=== PATIENT | female | born 1970 | race Caucasian/White ===

== ENCOUNTER 2017-06-02 19:49 | Emergency (ER) | payer MEDICAID, SELFPAY ==
[2017-06-02 19:50] VITALS: BP 148/99; PULSE 76; RESP 15; TEMP 36.9; BMI 30.3
--- NOTE | 2017-06-02 20:05 | ED.VISSUMM ---
- ER Visit Summary Date of Service: 06/02/17 Chief Complaint: [] Right knee pain History of Present Illness: The patient is a 46 F [] complaining of right knee pain beginning today. She reports walking down the steps and feeling a pop. Denies any acute injury. Reports difficulty with ambulation. No other complaints at this time. Physical Examination: [] Afebrile, vital signs stable. Termination of the right knee reveals tenderness to range of motion testing. No gross deformity or swelling. Anterior/posterior drawer sign. Mild discomfort with valgus stress. Test Results: [] Right knee 4 view x-rays: Emergency Department Course and Treatment: [] X-rays were negative. Patient was provided Eddi wrap. Patient provided with written for Naprosyn. Treatment Plan: [] Follow-up with PCP. Disposition: [] Discharge, stable. Impression: [] Right knee sprain This note was generated with [employer] dictation software. It may contain incorrect words, spelling, and punctuation that were not noted in review of the chart prior to signing ED Disposition - Plan for ED Patient: Chief Complaint: Lower Extremity Injury
--- NOTE | 2017-06-02 20:06 | RAD_ITS ---
STUDY: X-RAY - RIGHT KNEE REASON FOR EXAM: Female, 46 years old. Pain. Status post injury. TECHNIQUE: For view(s) of the knee. COMPARISON: None. FINDINGS: Normal visualized distal femur. Normal visualized proximal tibia and fibula. Normal proximal tibiofibular articulation. Normal medial femorotibial compartment. Normal lateral femorotibial compartment. There is mild degenerative arthrosis of the patellofemoral articulation. The soft tissue structures are unremarkable. RAD/Knee 4 or More Views IMPRESSION: No acute osseous injury. Electronically Signed: Marianna Gaming MD at 20:57 EST Tel , Service support ,
--- NOTE | 2017-06-02 20:59 | ED.DEP ---
ED Disposition - Plan for ED Patient: Disposition: Home or Assisted Living Chief Complaint: Lower Extremity Injury Instructions: ED Knee Pain [facility] Prescriptions: Naproxen 500 mg PO BID PRN PRN #20 tab PRN Reason: Pain Referrals: Care Physician,No Primary [Primary Care Provider] -
[2017-06-02 21:20] VITALS: RESP 18
--- NOTE | 2017-06-02 21:20 | ED.RN ---
REVIEWED D/C INSTRUCTIONS, FOLLOW UP CARE, PRESCRIPTION, AND S/S THAT WOULD WARRANT A RETURN TO THE ED WITH PT. PT VERBALIZED AN UNDERSTANDING AND DENIES FURTHER QUESTIONS FOR THIS RN. PT SKIN P/W/D, RESP EVEN AND UNLABORED, PT A&O X 3, NO DISTRESS NOTED. PT AMBULATED OUT OF ED, GAIT STEADY.
== END 2017-06-02 21:20 | disposition home or self-care (01) ==
PROVIDERS: Emergency Provider Emergency Medicine; Family Provider Family Medicine; PCP Family Medicine
DX: S83.91XA Sprain of unspecified site of right knee, initial encounter (principal); X58.XXXA Exposure to other specified factors, initial encounter; Y93.01 Activity, walking, marching and hiking; Y92.9 Unspecified place or not applicable; I25.10 Atherosclerotic heart disease of native coronary artery without angina pectoris; Z86.79 Personal history of other diseases of the circulatory system; Z86.59 Personal history of other mental and behavioral disorders; Z72.0 Tobacco use
CPT/HCPCS: 73564; 99282

== ENCOUNTER 2017-08-30 18:21 | Emergency (ER) | payer MEDICAID, SELFPAY ==
[2017-08-30 18:22] VITALS: BP 164/91; PULSE 76; RESP 22; TEMP 36.9; O2SAT 100; BMI 30.6
--- NOTE | 2017-08-30 18:35 | RAD_ITS ---
STUDY: X-RAY CHEST REASON FOR EXAM: Female, 47 years old. Chest pain TECHNIQUE: Frontal view of the chest COMPARISON: None. FINDINGS: The lungs are clear. There are no pleural effusions. There is no pneumothorax. The heart is normal in size. The visualized osseous structures are within normal limits. RAD/Chest 1 View (Portable) IMPRESSION: No acute thoracic pathology. Electronically Signed: Marino Joshua, at 19:01 EDT Tel , Service support ,
--- NOTE | 2017-08-30 18:35 | EKG12_ITS ---
Test Reason : CP Blood Pressure : / mmHG Vent. Rate : 069 BPM Atrial Rate : 069 BPM P-R Int : 132 ms QRS Dur : 082 ms QT Int : 408 ms P-R-T Axes : 043 -10 065 degrees QTc Int : 437 ms Normal sinus rhythm Inferior infarct , age undetermined Abnormal ECG Confirmed by RANDY ALMARAZ ([id number]), editor in chief VERNA LOYA ([id number]) on 09/10/2017 6:24:18 PM Referred By: LEILANI Confirmed By:RANDY ALMARAZ
[2017-08-30 18:39] VITALS: O2SAT 100
--- NOTE | 2017-08-30 18:40 | ED.RN ---
NO OLD EKG'S IN MUSE
[2017-08-30] MEDS: fentaNYL 100 MCG/2 ML Ampul 50 MCG IV (18:45)
[2017-08-30] MEDS: Aspirin 81 MG TAB.CHEW 324 MG PO (18:45)
[2017-08-30] MEDS: 0.9% Normal Saline 1,000 ML 150 ML IV (18:45)
[2017-08-30 18:47] LABS: Absolute Lymphocyte Count 2.85 X10^3/ul (0.83-4.51); Absolute Neutrophil Count 3.5 X10^3/uL (2.0-7.7); Basophil# 0.04 X10^3/uL; Basophil% 0.6 % (0-1); Eosinophil# 0.22 X10^3/uL; Eosinophils% 3.2 % (0-5); Hematocrit 39.1 % (37-47); Hemoglobin 12.6 g/dl (12.0-15.0); Lymphocyte # 2.85 X10^3/ul (4.0); Lymphocyte % 40.8 % (19-41); Mean Corp Hgb Conc 32.2 g/gl (32-36); Mean Corpuscular Hgb 29.4 pg (27.0-32.0); Mean Corpuscular Volume 91.1 fL (81-99); Monocyte# 0.39 X10^3/uL; Monocyte% 5.6 % (0-10); Neutrophil # 3.47 X10^3/uL (2.7-7.7); Neutrophil % 49.7 % (47-70); Platelet Count 295 K/mm3 (150-450); RBC Distribution Width CV 16.6 % (11.6-14.6); RBC Distribution Width SD 55.5 fl (35.1-43.9); Red Blood Count 4.29 M/mm3 (4.2-5.4)
[2017-08-30 18:48] LABS: POSITIVE COUNT NO; POSITIVE DIFFERENTIAL NO; POSITIVE MORPHOLOGY NO
[2017-08-30 19:00] LABS: D-Dimer Quantitative (DVT/PE) 0.33 FEU/ug/m (0.27-0.49)
[2017-08-30 19:08] LABS: Anion Gap 8 (5-15); BUN 21 mg/dL (7-18); BUN/Creat Ratio 22.8 RATIO (10-20); Calcium,Total 8.6 mg/dL (8.5-10.1); Chloride 107 mmol/L (98-107); Creatinine, Serum 0.92 mg/dL (0.55-1.02); EST Glomerular Filtration Rate 69 mL/min (>60); Est Glom Filt Rate - Afr Amer 84 mL/min (>60); Estimated Creatinine Clearance 68.02 ml/min; Glucose 90 mg/dL (74-106); Potassium 3.7 mmol/L (3.5-5.1); Sodium Level 140 mmol/L (136-145)
--- NOTE | 2017-08-30 20:29 | ED.VISSUMM ---
- ER Visit Summary Date of Service: 08/30/17 Chief Complaint: [Chest pain] History of Present Illness: The patient is a 47 F [presents to the emergency department complaint of chest pain that started about an hour ago. Patient describes a sharp stabbing pain in the left chest that she rates a 9 out of 10. Patient states she took a nitro at work without any relief. Patient took a second and a third nitro and when she did not get relief she called the EMS. Patient states that her neck got stiff and she had some numbness and tingling in her right arm. Patient states this felt similar to last time she had a heart attack. Patient states that about 6 months ago she was seen in [facility] for chest pain and was life flighted to another facility where she had a heart catheterization that just showed minimal disease and did not require any stenting. Patient was told that she likely had coronary artery spasm. Patient also states recently had her anxiety medicine increased and she does have a history of panic attacks. DAMON MCINTOSHMI. Cranial nerves II through XII grossly intact. Extremities-intact ?4, normal range of motion, normal pulses, atraumatic] Physical Examination: HEFROYLAN-PERRLA, EOMI. Cranial nerves II through XII grossly intact. TMs clear. Mucous membranes moist. No adenopathy. Cardiovascular-regular rate and rhythm without murmur or ectopy Lungs-clear to auscultation, chest wall stable without crepitus or subcu emphysema Abdomen-normoactive bowel sounds, soft, nontender, no rebound or rigidity, no peritoneal signs. Extremities-intact ?4, normal range of motion, normal pulses, atraumatic] Test Results: [EKG obtained on arrival shows sinus rhythm with a ventricular rate of 63 bpm with old inferior wall infarct. CBC with differential obtained showed a white count 7.0, hemoglobin 12.6, hematocrit 39, platelets 295. Chemistries unremarkable. Troponin was less than 0.015. D-dimer was normal at 0.33. Chest x-ray was normal.] Emergency Department Course and Treatment: [Patient received fentanyl 50 mcg IV and had good pain relief with that.] Treatment Plan: [I recommended admission for further workup and evaluation of her chest pain especially given her history of coronary artery spasm and GA. Patient is refusing admission at this point and will sign out AGAINST MEDICAL ADVICE. Patient understands I cannot rule out an acute coronary syndrome and she risks , disability, heart attack. Disposition: Signed out AGAINST MEDICAL ADVICE] Impression: [Chest pain-etiology uncertain] This note was generated with [employer] dictation software. It may contain incorrect words, spelling, and punctuation that were not noted in review of the chart prior to signing ED Disposition - Plan for ED Patient: Chief Complaint: Chest Pain Referrals: Radha Daigle MD [Primary Care Provider] -
--- NOTE | 2017-08-30 20:35 | ED.DCSUM_ITS ---
- ER Visit Summary Date of Service: 08/30/17 Chief Complaint: [Chest pain] History of Present Illness: The patient is a 47 F [presents to the emergency department complaint of chest pain that started about an hour ago. Patient describes a sharp stabbing pain in the left chest that she rates a 9 out of 10. Patient states she took a nitro at work without any relief. Patient took a second and a third nitro and when she did not get relief she called the EMS. Patient states that her neck got stiff and she had some numbness and tingling in her right arm. Patient states this felt similar to last time she had a heart attack. Patient states that about 6 months ago she was seen in [facility] for chest pain and was life flighted to another facility where she had a heart catheterization that just showed minimal disease and did not require any stenting. Patient was told that she likely had coronary artery spasm. Patient also states recently had her anxiety medicine increased and she does have a history of panic attacks. DAMON MCINTOSHMI. Cranial nerves II through XII grossly intact. Extremities-intact ?4, normal range of motion, normal pulses, atraumatic] Physical Examination: HEFROYLAN-PERRLA, EOMI. Cranial nerves II through XII grossly intact. TMs clear. Mucous membranes moist. No adenopathy. Cardiovascular-regular rate and rhythm without murmur or ectopy Lungs-clear to auscultation, chest wall stable without crepitus or subcu emphysema Abdomen-normoactive bowel sounds, soft, nontender, no rebound or rigidity, no peritoneal signs. Extremities-intact ?4, normal range of motion, normal pulses, atraumatic] Test Results: [EKG obtained on arrival shows sinus rhythm with a ventricular rate of 63 bpm with old inferior wall infarct. CBC with differential obtained showed a white count 7.0, hemoglobin 12.6, hematocrit 39, platelets 295. Chemistries unremarkable. Troponin was less than 0.015. D-dimer was normal at 0.33. Chest x-ray was normal.] Emergency Department Course and Treatment: [Patient received fentanyl 50 mcg IV and had good pain relief with that.] Treatment Plan: [I recommended admission for further workup and evaluation of her chest pain especially given her history of coronary artery spasm and ND. Patient is refusing admission at this point and will sign out AGAINST MEDICAL ADVICE. Patient understands I cannot rule out an acute coronary syndrome and she risks , disability, heart attack. Disposition: Signed out AGAINST MEDICAL ADVICE] Impression: [Chest pain-etiology uncertain] This note was generated with [employer] dictation software. It may contain incorrect words, spelling, and punctuation that were not noted in review of the chart prior to signing ED Disposition - Plan for ED Patient: Chief Complaint: Chest Pain Referrals: Radha Daigle MD [Primary Care Provider] -
--- NOTE | 2017-08-30 20:35 | ED.DEP ---
ED Disposition - Plan for ED Patient: Chief Complaint: Chest Pain Instructions: ED Chest Pain Atypical Unkn Cause Referrals: Radha Daigle MD [Primary Care Provider] - Pavel Boland MD [STAFF PHYSICIAN] - 3-5 Days
[2017-08-30 20:39] VITALS: BP 129/77; PULSE 63; RESP 13; O2SAT 100
== END 2017-08-30 20:52 | disposition home or self-care (01) ==
LOC: ED 18:55
PROVIDERS: Emergency Provider Emergency Medicine; Family Provider Family Medicine; PCP Family Medicine
DX: R07.9 Chest pain, unspecified (principal); I25.2 Old myocardial infarction; I10 Essential (primary) hypertension; F41.0 Panic disorder [episodic paroxysmal anxiety]; F41.9 Anxiety disorder, unspecified; Z72.0 Tobacco use; Z79.899 Other long term (current) drug therapy
CPT/HCPCS: 71045; 80048; 84484; 85025; 85379; 93005; 99285; J7030; A4216

== ENCOUNTER 2022-09-22 18:48 | Emergency (ER) | payer MEDICAID, SELFPAY ==
[2022-09-22 18:49] VITALS: BP 141/81; PULSE 82; RESP 16; TEMP 36.4; O2SAT 100; BMI 39.4
--- NOTE | 2022-09-22 19:02 | CT_ITS ---
STUDY: CT BRAIN WITHOUT CONTRAST REASON FOR EXAM: Female, 52 years old. dizzy RADIATION DOSAGE (If Supplied By Facility): CTDIvol = ( 44.99 ) mGy, DLP = ( 829.85 ) mGycm TECHNIQUE: Transaxial CT imaging of the brain was performed without administration of intravenous contrast material. Individualized dose optimization techniques were used for this CT. COMPARISON: No relevant priors. FINDINGS: Normal soft tissue structures. Normal calvarium. Normal size ventricles and extra-axial spaces for the patient''s age. Normal white matter tracts of the cerebral hemispheres. Normal basal ganglia and thalami. Normal brainstem. Normal cerebellum. There is no intracranial hemorrhage. There are no findings of an acute ischemic infarction. Normal visualized paranasal sinuses. CT/Brain/Head without Contrast IMPRESSION: Normal unenhanced CT scan of the brain. If clinical suspicion for acute infarct MRI recommended Electronically Signed: Bobby Hoffman MD at 19:36 EDT ,
--- NOTE | 2022-09-22 19:09 | EX.ED.DYSGE1 ---
HPI History of Present Illness Chief Complaint: Dizziness Detail of Chief Complaint: Near syncope Informant: patient Onset/Context/Timing Onset: Yesterday Narrative Narrative: Patient states that since yesterday she will get lightheaded and dizzy when she stands or walks and feels that she is going to pass out. She states she will start to see a black tunnel and this will resolve if she sits down to rest. She denies any new medications to me. She has been eating and drinking well. She reports normal urination. She denies chest pain or palpitations. [facility] Medical History CVA (cerebral vascular accident) Heart attack Hypertension Home Medications citalopram 20 mg tablet 40 mg PO DAILY 08/30/17 [History Last Taken Unknown] diltiazem HCl 240 mg capsule,extended release 24 hr (Cartia XT) 240 mg PO DAILY 08/30/17 [History Last Taken Unknown] isosorbide dinitrate 30 mg tablet 30 mg PO BID 08/30/17 [History Last Taken Unknown] nitroglycerin 0.4 mg sublingual tablet 0.4 mg sublingual UD PRN Pain 08/30/17 [History Last Taken Unknown] propranolol 10 mg tablet 20 mg PO TID 08/30/17 [History Last Taken Unknown] quetiapine 300 mg tablet (Seroquel) 300 mg PO QHS 08/30/17 [History Last Taken Unknown] carvedilol 6.25 mg tablet 6.25 mg PO BID 09/22/22 [History Last Taken Unknown] clopidogrel 75 mg tablet 75 mg PO DAILY 09/22/22 [History Last Taken Unknown] isosorbide mononitrate 120 mg tablet,extended release 24 hr 120 mg PO DAILY 09/22/22 [History Last Taken Unknown] Allergy/AdvReac Type Severity Reaction Status Date / Time bee venom protein (honey bee) Allergy Anaphylaxis Verified 09/22/22 18:52 [bees] Penicillins Allergy Unknown Verified 09/22/22 18:52 mirtazapine [From Remeron] AdvReac Upset Verified 09/22/22 18:52 Stomach Social History Smoking Status: Current every day smoker tobacco type: cigarettes ROS ROS ED Constitutional Constitutional ED: Denies chills or fever(s) Eyes Eyes: Denies change in vision or discharge from eye(s) ENT ENT ED: Denies discharge from eye(s), rhinorrhea or sore throat Cardiovascular Cardiovascular: Denies chest pain or palpitations Respiratory/Chest Respiratory/Chest: Denies cough or dyspnea Gastrointestinal Gastrointestinal: Denies abdominal pain, nausea or vomiting Genitourinary Genitourinary ED: Denies difficulty urinating or dysuria Musculoskeletal Musculoskeletal: Denies back pain or extremity pain Integumentary Denies Abrasions or rash Neurologic Neurologic: Denies headache(s) or weakness Psychiatric Psychiatric: Denies anxiety or depression Allergic/Immunologic Allergic/Immunologic ED: Denies lip swelling or urticaria EXAM Physical Exam Const Vital Signs: 09/22/22 18:49 09/22/22 20:17 09/22/22 20:30 Temperature 97.5 F L Temperature Source Temporal Pulse Rate 82 71 Pulse Rate [Lying] 76 Pulse Rate [Sitting (for 1 minute prior to obtaining)] 75 Pulse Rate [Standing (for 1 minute prior to obtaining)] 80 Respiratory Rate 16 22 H Blood Pressure 141/81 H 129/75 H Blood Pressure [Lying] 128/69 H Blood Pressure [Sitting (for 1 minute prior to obtaining)] 141/84 H Blood Pressure [Standing (for 1 minute prior to obtaining)] 135/83 H Blood Pressure Mean 101 90 Blood Pressure Mean [Lying] 88 Blood Pressure Mean [Sitting (for 1 minute prior to obtaining)] 103 Blood Pressure Mean [Standing (for 1 minute prior to obtaining)] 100 Pulse Ox 100 Oxygen Delivery Method Room Air 09/22/22 20:45 09/22/22 21:00 09/22/22 21:15 Temperature Temperature Source Pulse Rate 72 70 72 Pulse Rate [Lying] Pulse Rate [Sitting (for 1 minute prior to obtaining)] Pulse Rate [Standing (for 1 minute prior to obtaining)] Respiratory Rate 20 H 20 H 17 Blood Pressure 112/59 L 125/70 H 125/68 H Blood Pressure [Lying] Blood Pressure [Sitting (for 1 minute prior to obtaining)] Blood Pressure [Standing (for 1 minute prior to obtaining)] Blood Pressure Mean 75 85 85 Blood Pressure Mean [Lying] Blood Pressure Mean [Sitting (for 1 minute prior to obtaining)] Blood Pressure Mean [Standing (for 1 minute prior to obtaining)] Pulse Ox Oxygen Delivery Method Positive well nourished and well developed General Appearance ED: well developed HEENT Reports normocephalic and head/scalp atraumatic Eyes PERRL and EOMs intact bilaterally Neck supple Chest Wall inspection of chest normal and palpation of chest normal Resp normal respiratory effort and clear to auscultation bilaterally Cardio regular rate and regular rhythm GI normal to inspection, nondistended, normoactive bowel sounds Palpation: soft Extremity normal to inspection Neuro oriented x3 and no sensory deficits noted Sensorium / Orientation: alert Motor Exam: strength 5/5 throughout Psych mental status grossly normal Skin no rashes or lesions noted MDM MDM MDM Narrative Medical decision making narrative: Patient placed on global transportation manager. EKG obtained to evaluate for cardiac arrhythmia/ischemia. Chest x-ray obtained to evaluate for acute lung pathology, cardiac size, or mediastinal abnormality. Labwork obtained to evaluate for leukocytosis, anemia, and electrolyte derangement. CT scan of the head obtained given lightheadedness and near syncope. Lab Data Attestation: I reviewed the patient's lab results. Labs: Laboratory Results - last 24 hr 09/22/22 09/22/22 09/22/22 19:16 19:16 20:30 WBC 6.2 RBC 3.50 L Hgb 11.2 L Hct 34.6 L MCV 98.9 MCH 32.0 MCHC 32.4 RDW Std Deviation 46.5 H RDW Coeff of Kriss 13.0 Plt Count 267 MPV 8.9 Immature Gran % (Auto) 0.200 Neut % (Auto) 66.7 Lymph % (Auto) 22.6 Addison % (Auto) 6.6 Eos % (Auto) 3.4 Baso % (Auto) 0.5 Absolute Neuts (auto) 4.2 Absolute Lymphs (auto) 1.41 Nucleated RBC % 0 Sodium 140 Potassium 3.9 Chloride 111 H Carbon Dioxide 22.0 Anion Gap 7 BUN 19 H Creatinine 1.19 H Estim Creat Clear Calc 49.76 Est GFR (MDRD) Af Amer 61 Est GFR (MDRD) Non-Af 51 L BUN/Creatinine Ratio 16.0 Glucose 140 H Calcium 8.9 Total Bilirubin 0.50 Direct Bilirubin 0.14 AST 15 ALT 20 Alkaline Phosphatase 82 Troponin I High Sens 14 Total Protein 7.0 Albumin 3.6 Globulin 3.4 Urine Color Yellow Urine Clarity Cloudy Urine pH 6.0 Ur Specific Monument 1.015 Urine Protein 15 H Urine Glucose (UA) Normal Urine Ketones Negative Urine Occult Blood 10 H Urine Nitrite Negative Urine Bilirubin Negative Urine Urobilinogen Normal Ur Leukocyte Esterase 100 H Urine RBC 0-5 SEEN Urine WBC 10-25 SEEN Ur Squamous Epith Cells 10-25 SEEN Urine Bacteria 1+ Urine Mucus 0 SEEN Radiography Chest X-Ray - ED: 1 View, Read by ED Physician, Normal, Heart, Lungs and Mediastinum Diagnostic Testing: Clinical Impression(s) from Imaging Studies Brain CT 09/22/22 19:02 IMPRESSION: Normal unenhanced CT scan of the brain. If clinical suspicion for acute infarct MRI recommended Electronically Signed: Bobby Hoffman MD at 19:36 EDT , Chest X-Ray 09/22/22 19:23 IMPRESSION: Normal x-ray examination of the chest. Electronically Signed: Bobby Hoffman MD at 19:41 EDT , EKG Initial EKG: Attestation: I personally reviewed and interpreted this EKG as follows: Interpretation: Sinus Rhythm (Sinus at 76 with inferior Q waves. No acute ST change.) Treatment and Re-Evaluation :: CBC was normal white count at 6.2 with a hemoglobin of 11.2. Chemistry studies significant for BUN of 19 and a creatinine 1.19. This is slightly improved over her prior, however her previous labs were from 2018. Blood glucose is 140 and patient had just come from dinner. Chemistry studies are unremarkable. Troponin is normal at 14. Portable chest x-ray per my interpretation reveals no acute findings. Radiology interpretation reviewed and agrees. Head CT is normal. Patient was given a liter of IV fluids here. After IV fluids are administered orthostatic vital signs are obtained and normal. I did review patient's recent prescriptions. She was given a prescription for Robaxin on September 09. She states she took this for a day or 2 but has not taken it recently. She was also given a prescription for Coreg 6.25 mg twice daily. She states she took 1 tab of this yesterday for the first time. She initially thought this was causing her symptoms and has not taken any more of the medication. She is on baseline propranolol that has been longstanding with no recent changes to that dose. She is also on isosorbide. She had previously been on 30 mg 3 times daily, but that was switched to 120 mg extended release about 2 weeks ago. She states that she had been tolerating this well for the first week and a half that she took it and is not sure that this is causing her symptoms. Urinalysis is obtained and reveals no evidence of acute infection. Test results are all discussed with the patient. She will be given a work note for today and tomorrow. She will call her doctor on Sunday. Return instructions were provided and patient is comfortable with the plan. Discharge Plan Triage Chief Complaint: Dizziness ED Provider: Desiree Snowden Dx/Rx/DC Orders Clinical Impression: Near syncope Instructions: ED Near-Fainting, Uncertain Cause Prescriptions: No Action quetiapine [Seroquel] 300 MG tablet 300 mg PO QHS diltiazem HCl [Cartia XT] 240 MG capsule,extended release 24hr 240 mg PO DAILY Label Comments: take 1 capsule by mouth every morning isosorbide dinitrate 30 MG tablet 30 mg PO BID Label Comments: propranolol 10 MG tablet 20 mg PO TID citalopram 20 MG tablet 40 mg PO DAILY Label Comments: take 1 tablet by mouth once daily nitroglycerin 0.4 MG tablet, sublingual 0.4 mg sublingual UD PRN (Reason: Pain) Label Comments: clopidogrel 75 mg tablet 75 mg PO DAILY Label Comments: take 1 tablet by mouth once daily carvedilol 6.25 mg tablet 6.25 mg PO BID Label Comments: take 1 tablet by mouth twice a day isosorbide mononitrate 120 mg tablet extended release 24 hr 120 mg PO DAILY Label Comments: take 1 tablet by mouth once daily Stand Alone Forms: ED Work / School Excuse Primary Care Provider: Rosa Isela Wolf Referrals: Rosa Isela Wolf, DO [Primary Care Provider] - 3-5 Days NOT,DEFINED [Non-Staff] - Disposition Disposition: Home, Self Care Discharge Date/Time: 09/22/22 21:30
[2022-09-22] MEDS: 0.9% Normal Saline 1,000 ML 1000 ML IV (19:16)
--- NOTE | 2022-09-22 19:23 | RAD_ITS ---
STUDY: X-RAY CHEST REASON FOR EXAM: Female, 52 years old. cp TECHNIQUE: AP portable COMPARISON: August 30, thousand 18 FINDINGS: The lungs are clear and expanded. There is no demonstrated pleural abnormality. Normal size heart. Normal mediastinum and etgan. Normal visualized pulmonary arteries. Normal visualized aortic arch and descending thoracic aorta. Normal visualized thoracic spine. Normal visualized ribs, clavicles, and shoulders. There is no demonstrated abnormality of the visualized soft tissue structures of the upper abdomen. RAD/Chest 1 View (Portable) IMPRESSION: Normal x-ray examination of the chest. Electronically Signed: Bobby Hoffman MD at 19:41 EDT ,
[2022-09-22 19:28] LABS: Absolute Lymphocyte Count 1.41 X10^3/uL (0.83-4.51); Absolute Neutrophil Count 4.2 X10^3/uL (2.0-7.7); Basophil# 0.03 X10^3/uL; Basophil% 0.5 % (0-1); Eosinophil# 0.21 X10^3/uL; Eosinophils% 3.4 % (0-5); Hematocrit 34.6 % (37-47); Hemoglobin 11.2 g/dL (12.0-15.0); Lymphocyte # 1.41 X10^3/ul (0.83-4.51); Lymphocyte % 22.6 % (19-41); Mean Corp Hgb Conc 32.4 g/dL (32-36); Mean Corpuscular Volume 98.9 fL (81-99); Mean Platelet Vol. 8.9 fl (6.2-12.0); Monocyte# 0.41 X10^3/uL; Monocyte% 6.6 % (0-10); NRBC Flagged by Analyzer 0 % (0-5); Neutrophil # 4.16 X10^3/uL (2.7-7.7); Neutrophil % 66.7 % (47-70); Platelet Count 267 K/mm3 (150-450); RBC Distribution Width SD 46.5 fl (35.1-43.9); White Blood Count 6.2 K/mm3 (4.4-11.0)
[2022-09-22 19:45] LABS: AST(SGOT) 15 U/L (15-37); Alanine Aminotransfer ALT/SGPT 20 U/L (13-56); Albumin, Serum 3.6 g/dL (3.2-5.0); Alkaline Phosphatase 82 U/L (45-117); Anion Gap 7 (5-15); BUN 19 mg/dL (7-18); Bilirubin, Direct 0.14 mg/dL (0.00-0.30); Calcium,Total 8.9 mg/dL (8.5-10.1); Chloride 111 mmol/L (98-107); Creatinine, Serum 1.19 mg/dL (0.55-1.02); EST Glomerular Filtration Rate 51 mL/min (>60); Est Glom Filt Rate - Afr Amer 61 mL/min (>60); Estimated Creatinine Clearance 49.76 ml/min; Globulin 3.4 g/dL (2.2-4.2); Glucose 140 mg/dL (74-106); Potassium 3.9 mmol/L (3.5-5.1); Sodium Level 140 mmol/L (136-145); Troponin-I HS 14 pg/mL (3.0-54.0)
[2022-09-22 20:17] VITALS: BP 128/69; BP 135/83; BP 141/84; PULSE 75; PULSE 76; PULSE 80
[2022-09-22 20:30] VITALS: BP 129/75; PULSE 71; RESP 22
[2022-09-22] MEDS: 0.9% Normal Saline 1,000 ML 150 ML IV (20:30)
[2022-09-22 20:35] LABS: Mucous, Urine 0 SEEN /hpf (<or=2+)
[2022-09-22 20:45] VITALS: BP 112/59; PULSE 72; RESP 20
[2022-09-22 20:51] LABS: Color, Urine Yellow (Yellow); Glucose, Dipstick Normal (Normal); Ketone-Dipstick Negative (Negative); Leukocyte Esterase-Dipstick 100 /ul (Negative); Nitrite-Dipstick Negative (Negative); Occult Blood-Urine 10 /ul (Negative); Protein-Dipstick 15 mg/dl (Negative); Specific Gravity, Urine 1.015 (1.002-1.030); Urine Bilirubin Dipstick Negative (Negative); Urine Clarity Cloudy (Clear); Urine Urobilinogen Normal (Normal)
[2022-09-22 20:59] LABS: Red Blood Cells-Urine 0-5 SEEN /hpf (0-5); Squamous Epithelial Cells - UA 10-25 SEEN /hpf (5-10); White Blood Cells 10-25 SEEN /hpf (0-5)
[2022-09-22 21:00] VITALS: BP 125/70; PULSE 70; RESP 20
[2022-09-22 21:00] LABS: Bacteria 1+ /hpf (None Seen)
[2022-09-22 21:15] VITALS: BP 125/68; PULSE 72; RESP 17
== END 2022-09-22 21:30 | disposition home or self-care (01) ==
PROVIDERS: Emergency Provider Emergency Medicine; PCP Internal Medicine; Visit Provider Emergency Medicine
DX: R55 Syncope and collapse (principal); F17.210 Nicotine dependence, cigarettes, uncomplicated; I10 Essential (primary) hypertension; Z79.899 Other long term (current) drug therapy; Z86.73 Personal history of transient ischemic attack (TIA), and cerebral infarction without residual deficits; I25.2 Old myocardial infarction; Z79.02 Long term (current) use of antithrombotics/antiplatelets
CPT/HCPCS: 70450; 71045; 80048; 80076; 81001; 84484; 85025; 93005; 96360; 96361; 99285; J7030; A4216